=== PATIENT | female | born 1985 | race Caucasian/White ===

== ENCOUNTER → 2019-04-17 | Day surgery (SDC) | payer OTHER ==
[~2019-04-17] MED LIST: BUPIVACAINE HCL 0.5 % INJ/PF 30 ML SDV ONE; METHYLPREDNISOLONE ACETATE INJ 40 MG/1 ML ML ONE
--- NOTE | 2019-04-17 14:50 | RADIOLOGY REPORT (SQ) ---
EXAM DESCRIPTION: INJECT/ASPIR HIP/SHLDR/KNEE; FLUORO/NEEDLE PLACEMENT COMPLETED DATE/TIME: 04/17/2019 1:45 pm REASON FOR STUDY: SACROILIITIS, NEC (M46.1) M46.1 SACROILIITIS, NOT ELSEWHERE CLASSIFIED COMPARISON: Right hip films 05/09/2015 Bone scan 05/09/2015 Right hip MR arthrogram 09/23/2014 FLUOROSCOPY TIME: 42 seconds 1 digital C-arm image saved to PACS. LIMITATIONS: None. PROCEDURE: SITE OF INJECTION: Right sacroiliac joint LOCALIZING CONTRAST TYPE AND DOSE: No contrast utilized MEDICATION TYPE AND DOSE: 40 mg of Depo-Medrol mixed with 0.5 mL of 0.5% bupivacaine Using local anesthesia and sterile technique with fluoroscopic guidance, the needle was advanced into the joint. BI-RADS could be was used to verify intraarticular placement. Needle placement into the inferior right SI joint reproduce the patient's pain. This was followed by therapeutic injection of the indicated medications. The needle was removed. There were no immediate complications. Preprocedure pain level: 5/5. Postprocedure pain level: 1/5. IMPRESSION: THERAPEUTIC INJECTION OF THE RIGHT SACROILIAC JOINT ABOVE. COMMENT: Patient medication list reviewed: Yes- Quality ID# [id number]:Eligible professional attests to doc umenting in the medical record they obtained, updated, or reviewed the patient's current medications. . Quality ID [id number]: Final reports for procedures using fluoroscopy that document radiation exposure alejo sergey, or exposure time and number of fluorographic images (if radiation exposure indices are not avail able) TECHNICAL DOCUMENTATION: JOB ID: [id number] [employer]- All Rights Reserved Reading location - IP/workstation name: [email or web address]
== END ==
LOC: RAD 12:34
PROVIDERS: ATTEND Family Medicine
DX: M46.1 Sacroiliitis, not elsewhere classified (principal)
CPT/HCPCS: 20610; 77002; J3490; J1030

== ENCOUNTER → 2019-05-29 | Outpatient (CLI) | payer OTHER ==
--- NOTE | 2019-05-29 14:51 | RADIOLOGY REPORT (SQ) ---
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 TECHNIQUE: Dynamic and static grayscale images acquired of the pelvis via transabdominal approach an d recorded on PACS. Additional selected color Doppler and spectral images recorded. LIMITATIONS: None. FINDINGS: UTERUS: Contour normal. No mass. ENDOMETRIAL STRIPE: No focal or generalized thickening. No masses. CERVIX: No nabothian cysts. RIGHT OVARY AND DOPPLER: Normal size. No worrisome masses. Normal arterial vascular flow without evid ence for torsion. LEFT OVARY AND DOPPLER: Normal size. No worrisome masses. Normal arterial vascular flow without evide nce for torsion. FREE FLUID: None noted. OTHER: No other significant finding. MEASUREMENTS: UTERUS: 4.6 x 5.2 x 7.4 cm. ENDOMETRIAL STRIPE: 5.9 mm. RIGHT OVARY: 2.3 x 2.7 x 2.9 cm. LEFT OVARY: 3.3 x 3.3 x 3.5 cm. IMPRESSION: NORMAL PELVIC ULTRASOUND BY TRANSABDOMINAL TECHNIQUE. TECHNICAL DOCUMENTATION: JOB ID: [id number] [employer]- All Rights Reserved Rev-02/28 Reading location - IP/workstation name: [email or web address]
== END ==
LOC: RAD 14:29
PROVIDERS: ATTEND Internal Medicine
DX: D27.1 Benign neoplasm of left ovary (principal)
CPT/HCPCS: 76856